=== PATIENT | female | born 1980 ===

== ENCOUNTER 2019-08-07 13:38 | Outpatient (CLI) | payer OTHER ==
--- NOTE | 2019-08-07 14:22 | ULT ---
Pelvic sonogram transabdominal and transvaginal imaging with duplex evaluation HISTORY: Ovarian cyst. COMPARISON: None available. FINDINGS: Urinary bladder is unremarkable. Uterus has a heterogeneous echotexture and measures up to 8.6 cm. Hypoechoic fibroid within the retroverted anterior myometrium is 1.9 cm greatest diameter. Smaller fibroid within the posterior fundus 1.1 cm. Endometrium is 0.7 cm. No free fluid. Right ovary is 5.1 cm length and left is 3.1 cm. Each has a normal appearance with follicles and good color and spectral Doppler flow. IMPRESSION: Mild fibroid involvement of the uterus. Normal appearance of the ovaries
== END 2019-08-07 13:39 | disposition home or self-care (01) ==
LOC: BICULT 13:38
PROVIDERS: ATTEND Family Medicine
DX: N83.201 Unspecified ovarian cyst, right side (principal); D25.9 Leiomyoma of uterus, unspecified
CPT/HCPCS: 76856